=== PATIENT | female | born 1945 | race Caucasian/White ===

== ENCOUNTER 2020-01-02 13:29 | Outpatient (CLI) | payer MEDICARE, OTHER, SELFPAY ==
[2020-01-02 13:46] LABS: Basophils Absolute Auto 0.05 K/mm3 (0.00-0.10); Basophils Percent Auto 0.7 % (0.0-1.0); Eosinophils Absolute Auto 0.19 K/mm3 (0.02-0.50); Eosinophils Percent Auto 2.5 % (1.0-6.0); Hematocrit 31.6 % (35.0-42.0); Hemoglobin 10.1 g/dL (11.7-13.8); Immature Granulocyte Absolute 0.04 K/mm3 (0.00-0.00); Immature Granulocyte Percent A 0.5 % (0.0-0.0); Lymphocytes Absolute Auto 1.01 K/mm3 (1.10-4.50); Lymphocytes Percent Auto 13.5 % (18.0-42.0); Mean Corpuscular Hemoglobin 30.3 pg (27.0-31.0); Mean Corpuscular Volume 94.9 fL (78.0-102.0); Mean Platelet Volume 9.8 fl (9.2-11.8); Monocytes Absolute Auto 0.71 K/mm3 (0.10-0.90); Monocytes Percent Auto 9.5 % (2.0-11.0); Neutrophils Absolute Auto 5.5 K/mm3 (1.7-7.2); Neutrophils Percent Auto 73.3 % (50.0-70.0); Platelet Count Result 334 K/mm3 (150-420); Red Blood Count 3.33 M/mm3 (4.20-5.40); Red Cell Distribution Width 17.6 % (11.6-14.4); White Blood Count 7.5 K/mm3 (4.8-10.8)
[2020-01-02 14:30] LABS: Alanine Aminotransferase 30 U/L (14-59); Albumin Level 3.9 g/dL (3.4-5.0); Alkaline Phosphatase 122 U/L (46-116); Anion Gap 12.1 mmol/L (7-16); Aspartate Amino Transferase 28 U/L (15-37); Bilirubin,Total 0.9 mg/dL (0.00-1.00); Blood Urea Nitrogen 10 mg/dL (7-18); Calcium 8.3 mg/dL (8.5-10.1); Carbon Dioxide 28 mmol/L (21-32); Chloride 103 mmol/L (98-108); Estimated Glomerular Filt Rate > 60; Glucose 90 mg/dL (70-99); Osmolality Calculated 287 mOsm/kg (285-295); Potassium 4.1 mmol/L (3.5-5.1); Sodium 139 mmol/L (136-145); Thyroid Stimulating Hormone 1.38 uIU/mL (0.36-3.74); Total Protein 7.1 g/dL (6.4-8.2)
[2020-01-08 08:32] LABS: Vitamin D 1,25 (OH)2 Total 79 pg/mL (18-72); Vitamin D2 1,25 (OH)2 <8 pg/mL; Vitamin D3 1,25 (OH)2 79 pg/mL
== END 2020-01-02 13:30 | disposition home or self-care (01) ==
LOC: CHSLAB 13:36
PROVIDERS: PCP Family Medicine
DX: Z79.899 Other long term (current) drug therapy (principal); M81.0 Age-related osteoporosis without current pathological fracture
CPT/HCPCS: 36415; 80053; 82652; 84443; 85025

== ENCOUNTER 2020-10-27 07:55 | Outpatient (RCR) | payer MEDICARE, OTHER, SELFPAY | END 2021-01-25 23:59 | disposition home or self-care (01) | LOC: CHSAUDIO 07:55 | PROVIDERS: PCP Family Medicine; Visit Provider Family Medicine | DX: H91.90 Unspecified hearing loss, unspecified ear (principal) | CPT/HCPCS: 92557; 92567 ==

== ENCOUNTER 2020-12-08 10:02 | Outpatient (RCR) | payer MEDICARE, OTHER, SELFPAY | END 2021-03-08 23:59 | disposition home or self-care (01) | LOC: ANHAUDASC 10:02 | PROVIDERS: PCP Family Medicine; Visit Provider Family Medicine | DX: Z46.1 Encounter for fitting and adjustment of hearing aid (principal) | CPT/HCPCS: V5160; V5261 ==

== ENCOUNTER 2020-12-09 13:42 | Outpatient (NON) | payer MEDICARE, SELFPAY ==
[2020-12-09 14:08] LABS: Add Urine Microscopic? NO; Appearance Urine Clear (Clear); Bilirubin Urine Negative (Negative); Blood Urine Negative (Negative); Color Urine Yellow (Yellow); Glucose Urine UA Negative (Negative); Ketones Urine Negative (Negative); Leukocyte Esterase Ur Negative LEU/UL (Negative); Nitrate Urine Negative (Negative); Protein Urine Negative (Negative); Specific Grav Ur 1.015 (1.010-1.020); Urobilinogen Urine 0.2 mg/dL (0.2-1.0)
== END 2020-12-09 13:43 ==
LOC: CHSLAB 13:43
PROVIDERS: Visit Provider Family Medicine
DX: R30.0 Dysuria (principal)
CPT/HCPCS: 81003

== ENCOUNTER 2020-12-29 11:00 | Outpatient (RCR) | payer MEDICARE, OTHER, SELFPAY | END 2021-03-01 23:59 | disposition home or self-care (01) | LOC: CHSAUDIO 11:00 | PROVIDERS: PCP Family Medicine; Visit Provider Family Medicine | DX: Z53.8 Procedure and treatment not carried out for other reasons (principal) | CPT/HCPCS: 99199 ==

== ENCOUNTER 2021-01-06 10:31 | Outpatient (CLI) | payer MEDICARE, SELFPAY ==
[2021-01-06 10:49] LABS: Hematocrit 32.3 % (35.0-42.0); Hemoglobin 10.5 g/dL (11.7-13.8); Mean Corpuscular HGB Conc 32.5 g/dL (32.0-36.0); Mean Corpuscular Volume 89.2 fL (78.0-102.0); Mean Platelet Volume 9.7 fl (9.2-11.8); Platelet Count Result 331 K/mm3 (150-420); Red Blood Count 3.62 M/mm3 (4.20-5.40); Red Cell Distribution Width 17.7 % (11.6-14.4); White Blood Count 6.6 K/mm3 (4.8-10.8)
[2021-01-06 11:29] LABS: Alanine Aminotransferase 33 U/L (14-59); Albumin Level 4.1 g/dL (3.4-5.0); Alkaline Phosphatase 130 U/L (46-116); Anion Gap 5 mmol/L (8-16); Aspartate Amino Transferase 27 U/L (15-37); Blood Urea Nitrogen 10 mg/dL (7-18); Calcium 9.2 mg/dL (8.5-10.1); Carbon Dioxide 29 mmol/L (21-32); Chloride 96 mmol/L (98-108); Estimated Glomerular Filt Rate > 60; Glucose 92 mg/dL (70-99); Osmolality Calculated 269 mOsm/kg (285-295); Potassium 4.4 mmol/L (3.5-5.1); Sodium 130 mmol/L (136-145); Total Protein 7.3 g/dL (6.4-8.2)
[2021-01-11 14:30] LABS: Immature Reticulocyte Fraction 24.5 % (2.0-16.52); Reticulocyte Percent 4.79 % (0.50-1.50); Reticulocytes Absolute 0.18 M/mm3 (0.02-0.1)
[2021-01-11 14:40] LABS: Ferritin 22 ng/mL (8-252); Folic Acid 12.3 ng/mL (8.6->20); Iron 64 ug/dL (50-170); Percent Iron Saturation 17 % (12-57); Vitamin B12 275 pg/mL (193-986)
== END 2021-01-06 10:32 | disposition home or self-care (01) ==
PROVIDERS: PCP Family Medicine; Visit Provider Family Medicine
DX: K21.9 Gastro-esophageal reflux disease without esophagitis (principal); I10 Essential (primary) hypertension; Z79.899 Other long term (current) drug therapy; D64.9 Anemia, unspecified
CPT/HCPCS: 36415; 80053; 82607; 82728; 82746; 83540; 83550; 85027; 85046

== ENCOUNTER 2021-04-18 09:36 | Outpatient (CLI) | payer MEDICARE, OTHER, SELFPAY ==
--- NOTE | 2021-04-21 08:28 | WPDHOLTEREM ---
Holter/Event Monitor Holter/Event Monitor Date of procedure: 04/18/21 Procedure Type: 48 hour holter monitor Indications: Syncope Conclusion: 1. 48 hour holter monitor on 04/18/21. 2. Underlying rhythm is sinus rhythm. HR range 45-145 bpm; average HR 80 bpm. 3. There are 32 premature supraventricular complexes, 2 supraventricular couplets and 2 supraventricular triplets. No supraventricular tachycardia. 4. There are 285 premature ventricular complexes. No ventricular tachycardia. 5. No sinoatrial or atrioventricular blocks. There are intermittent pauses up to 2.0 seconds. 6. Patient reports symptoms of fluttering and feeling anxious which demonstrate sinus rhythm, HR range 57-106 bpm with one episodes of PAC's and 3 episodes with pauses of 1.8 -2.0 seconds.
== END 2021-04-18 09:37 | disposition home or self-care (01) ==
LOC: CHSLAB 09:40
PROVIDERS: PCP Family Medicine; Visit Provider Family Medicine
DX: R55 Syncope and collapse (principal)
CPT/HCPCS: 93225; 93226

== ENCOUNTER 2021-05-30 15:39 | Outpatient (CLI) | payer MEDICARE, OTHER, SELFPAY ==
--- NOTE | 2021-05-30 15:42 | ECG_ITS ---
Measurements Intervals [place] Rate: 69 P: 81 MD: 177 QRS: 71 QRSD: 91 T: 42 QT: 374 QTc: 403 Interpretive Statements SINUS RHYTHM WITH MARKED RHYTHM IRREGULARITY, POSSIBLE NON-CONDUCTED PAC, SA BLOCK, AV BLOCK, OR SINUS PAUSE ABNORMAL ECG Electronically Signed On 05-30-2021 17:03:15 CDT by Jace Gonzalez D.O.
== END 2021-05-30 15:40 | disposition home or self-care (01) ==
LOC: CHSCARD 15:41
PROVIDERS: PCP Family Medicine; Visit Provider Internal Medicine Cardiovascular Disease
DX: I49.1 Atrial premature depolarization (principal)
CPT/HCPCS: 93005

== ENCOUNTER 2022-01-04 14:51 | Outpatient (NON) | payer MEDICARE, OTHER, SELFPAY | END 2022-01-04 14:52 | disposition home or self-care (01) | LOC: CHSLAB 14:51 | PROVIDERS: Visit Provider Family Medicine | DX: R30.0 Dysuria (principal) | CPT/HCPCS: 87086 ==

== ENCOUNTER 2022-01-16 09:58 | Outpatient (CLI) | payer MEDICARE, SELFPAY ==
[2022-01-16 10:10] LABS: Hematocrit 31.5 % (35.0-42.0); Hemoglobin 10.2 g/dL (11.7-13.8); Mean Corpuscular HGB Conc 32.4 g/dL (32.0-36.0); Mean Corpuscular Hemoglobin 28.7 pg (27.0-31.0); Mean Corpuscular Volume 88.5 fL (78.0-102.0); Mean Platelet Volume 9.2 fl (9.2-11.8); Platelet Count Result 348 K/mm3 (150-420); Red Blood Count 3.56 M/mm3 (4.20-5.40); Red Cell Distribution Width 17.5 % (11.6-14.4); White Blood Count 7.8 K/mm3 (4.8-10.8)
[2022-01-16 10:52] LABS: Thyroid Stimulating Hormone Reflex 1.15 u/IU/mL (0.36-3.74)
== END 2022-01-16 09:59 | disposition home or self-care (01) ==
PROVIDERS: PCP Family Medicine; Visit Provider Family Medicine
DX: E11.9 Type 2 diabetes mellitus without complications (principal); I10 Essential (primary) hypertension
CPT/HCPCS: 36415; 84443; 85027

== ENCOUNTER 2022-03-27 10:41 | Outpatient (CLI) | payer MEDICARE, SELFPAY ==
[2022-03-27 10:59] LABS: Basophils Absolute Auto 0.04 K/mm3 (0.00-0.10); Basophils Percent Auto 0.6 % (0.0-1.0); Eosinophils Absolute Auto 0.13 K/mm3 (0.02-0.50); Hematocrit 31.3 % (35.0-42.0); Hemoglobin 9.8 g/dL (11.7-13.8); Immature Granulocyte Absolute 0.02 K/mm3 (0.00-0.00); Immature Granulocyte Percent A 0.3 % (0.0-0.0); Lymphocytes Absolute Auto 1.01 K/mm3 (1.10-4.50); Lymphocytes Percent Auto 15.3 % (18.0-42.0); Mean Corpuscular HGB Conc 31.3 g/dL (32.0-36.0); Mean Corpuscular Hemoglobin 26.7 pg (27.0-31.0); Mean Corpuscular Volume 85.3 fL (78.0-102.0); Mean Platelet Volume 9.8 fl (9.2-11.8); Monocytes Absolute Auto 0.62 K/mm3 (0.10-0.90); Monocytes Percent Auto 9.4 % (2.0-11.0); Neutrophils Absolute Auto 4.8 K/mm3 (1.7-7.2); Neutrophils Percent Auto 72.4 % (50.0-70.0); Platelet Count Result 312 K/mm3 (150-420); Red Blood Count 3.67 M/mm3 (4.20-5.40); Red Cell Distribution Width 20.7 % (11.6-14.4); White Blood Count 6.6 K/mm3 (4.8-10.8)
[2022-03-27 11:13] LABS: Alanine Aminotransferase 20 U/L (14-59); Albumin Level 3.7 g/dL (3.4-5.0); Alkaline Phosphatase 113 U/L (46-116); Anion Gap 5 mmol/L (8-16); Aspartate Amino Transferase 37 U/L (15-37); Bilirubin,Total 0.9 mg/dL (0.00-1.00); Blood Urea Nitrogen 9 mg/dL (7-18); Calcium 8.1 mg/dL (8.5-10.1); Carbon Dioxide 28 mmol/L (21-32); Chloride 97 mmol/L (98-108); Estimated Glomerular Filt Rate > 60; Glucose 88 mg/dL (70-99); Osmolality Calculated 267 mOsm/kg (285-295); Potassium 5.3 mmol/L (3.5-5.1); Sodium 130 mmol/L (136-145); Total Protein 7.3 g/dL (6.4-8.2)
== END 2022-03-27 10:42 | disposition home or self-care (01) ==
LOC: CHSLAB 10:46
PROVIDERS: PCP Family Medicine
DX: Z79.899 Other long term (current) drug therapy (principal)
CPT/HCPCS: 36415; 80053; 85025

== ENCOUNTER 2022-05-03 11:49 | Outpatient (CLI) | payer MEDICARE, OTHER, SELFPAY ==
[2022-05-03 12:10] LABS: Basophils Absolute Auto 0.05 K/mm3 (0.00-0.10); Basophils Percent Auto 0.8 % (0.0-1.0); Eosinophils Absolute Auto 0.18 K/mm3 (0.02-0.50); Hematocrit 29.7 % (35.0-42.0); Hemoglobin 9.6 g/dL (11.7-13.8); Immature Granulocyte Absolute 0.02 K/mm3 (0.00-0.00); Immature Granulocyte Percent A 0.3 % (0.0-0.0); Lymphocytes Absolute Auto 0.97 K/mm3 (1.10-4.50); Lymphocytes Percent Auto 16.2 % (18.0-42.0); Mean Corpuscular HGB Conc 32.3 g/dL (32.0-36.0); Mean Corpuscular Hemoglobin 28.4 pg (27.0-31.0); Mean Corpuscular Volume 87.9 fL (78.0-102.0); Mean Platelet Volume 10.1 fl (9.2-11.8); Monocytes Absolute Auto 0.58 K/mm3 (0.10-0.90); Monocytes Percent Auto 9.7 % (2.0-11.0); Neutrophils Absolute Auto 4.2 K/mm3 (1.7-7.2); Platelet Count Result 314 K/mm3 (150-420); Red Blood Count 3.38 M/mm3 (4.20-5.40); Red Cell Distribution Width 17.6 % (11.6-14.4)
--- NOTE | 2022-05-03 12:10 | ECG_ITS ---
Measurements Intervals [place] Rate: 57 P: 77 NC: 169 QRS: 67 QRSD: 97 T: 59 QT: 428 QTc: 420 Interpretive Statements SINUS BRADYCARDIA WITH FREQUENT SUPRAVENTRICULAR PREMATURE COMPLEXES POSSIBLE SINOATRIAL EXIT BLOCK ABNORMAL ECG COMPARED TO ECG 05/30/2021 15:48:22 HEART RATE HAS DECREASED Electronically Signed On 05-03-2022 15:08:23 CDT by Shaun Rose M.D.
[2022-05-03 12:43] LABS: Alanine Aminotransferase 27 U/L (14-59); Albumin Level 3.7 g/dL (3.4-5.0); Alkaline Phosphatase 107 U/L (46-116); Anion Gap 4 mmol/L (8-16); Aspartate Amino Transferase 22 U/L (15-37); Bilirubin,Total 0.6 mg/dL (0.00-1.00); Blood Urea Nitrogen 7 mg/dL (7-18); Calcium 8.3 mg/dL (8.5-10.1); Carbon Dioxide 30 mmol/L (21-32); Chloride 100 mmol/L (98-108); Estimated Glomerular Filt Rate > 60; Glucose 81 mg/dL (70-99); Osmolality Calculated 275 mOsm/kg (285-295); Potassium 4.4 mmol/L (3.5-5.1); Sodium 134 mmol/L (136-145); Total Protein 7.1 g/dL (6.4-8.2)
== END 2022-05-03 11:50 | disposition home or self-care (01) ==
LOC: CHSLAB 11:54
PROVIDERS: PCP Nurse Practitioner Family; Visit Provider Nurse Practitioner Family
DX: I49.3 Ventricular premature depolarization (principal); R42 Dizziness and giddiness; Z01.818 Encounter for other preprocedural examination; E83.42 Hypomagnesemia; F41.1 Generalized anxiety disorder
CPT/HCPCS: 36415; 80053; 83735; 84443; 85025; 93005

== ENCOUNTER 2022-05-03 16:55 | Emergency (ER) | payer MEDICARE, OTHER, SELFPAY ==
[2022-05-03] VITALS (20 sets, daily range): BP systolic 122–143; BP diastolic 69–83; PULSE 61–87; RESP 15–23; TEMP 36.6; O2SAT 90–93
--- NOTE | ~2022-05-03 | XR_ITS ---
XR chest 2V DATE: 05/03/2022 17:29 INDICATION: Abnormal EKG. History of hypertension. History of vertigo. TECHNIQUE: PA and lateral views COMPARISON: January 01, 2015 2 view chest FINDINGS: Normal heart size. Aortic arch and descending thoracic aortic calcification. No hilar or me diastinal enlargement. No pulmonary infiltrate or consolidation, pleural effusion or pulmonary vascul ar congestion or pneumothorax. Osteopenia. There is dextroscoliosis of the thoracic spine. IMPRESSION: No active cardiopulmonary disease Aortic atherosclerosis Osteopenia Reviewed, dictated and finalized at location A.
--- NOTE | ~2022-05-03 | CT_ITS ---
EXAMINATION: CT brain wo con DATE: 05/03/2022 18:57 INDICATION: dizziness . TECHNIQUE: Computed tomography (CT) of the head was performed without intravenous contrast. The mA wa s adjusted according to patient size. Iterative reconstruction technique was employed. The dose-lengt h product was 605.33 mGy-cm. COMPARISON: 06/18/2014 FINDINGS: No acute intracranial hemorrhage or extra-axial fluid collection. No hydrocephalus, mass, or herniation. No acute ischemic infarct. Unremarkable dural venous sinus attenuation. No acute osseous abnormality. The aerated spaces are clear. Mild atrophy. Old left basal ganglia lacunar infarct. Atherosclerotic intracranial calcifications. Bi lateral lens replacements. IMPRESSION: No acute intracranial process. Reviewed, dictated and finalized at location K.
--- NOTE | 2022-05-03 17:03 | ECG_ITS ---
Measurements Intervals [place] Rate: 79 P: 70 [place]: 156 QRS: 44 QRSD: 89 T: 7 QT: 354 QTc: 407 Interpretive Statements SINUS RHYTHM WITH SINUS ARRHYTHMIA WITHIN NORMAL LIMITS COMPARED TO ECG 05/03/2022 12:27:34 SINUS RHYTHM NOW PRESENT SINUS ARRHYTHMIA NOW PRESENT Electronically Signed On 05-05-2022 16:00:19 CDT by Cyrus Pérez M.D.
[2022-05-03 17:24] LABS: Basophils Absolute Auto 0.1 K/mm3 (0.0-0.1); Basophils Percent Auto 0.8 % (0.2-1.2); Eosinophils Absolute Auto 0.2 K/mm3 (0-0.3); Hematocrit 31.4 % (37.0-47.0); Immature Granulocyte Absolute 0.01 K/mm3 (0.00-0.031); Immature Granulocyte Percent A 0.2 % (0-0.5); Lymphocytes Absolute Auto 1.13 K/mm3 (0.9-3.2); Mean Corpuscular HGB Conc 31.8 g/dl (32-36); Mean Corpuscular Hemoglobin 28.2 pg (26-34); Mean Corpuscular Volume 88.7 fl (80-100); Mean Platelet Volume 9.9 fl (7.4-10.4); Monocytes Absolute Auto 0.7 K/mm3 (0.1-0.6); Monocytes Percent Auto 11.3 % (2.6-8.5); Neutrophils Absolute Auto 3.8 K/mm3 (1.3-6.7); Neutrophils Percent Auto 64.7 % (45.5-73.1); Platelet Count Result 302 k/mm3 (150-375); Red Blood Count 3.54 M/mm3 (4.2-5.4); Red Cell Distribution Width 17.6 % (11.5-14.5); White Blood Count 5.9 K/mm3 (4.5-10.0)
[2022-05-03 17:37] LABS: INR 1.2; Prothrombin Time 14.6 Seconds (11.1-14.7)
[2022-05-03 17:38] LABS: Partial Thromboplastin Time 32.5 SECONDS (22.3-36.8)
--- NOTE | 2022-05-03 17:41 | ED.GENADULT ---
HPI - General Adult General Chief complaint: Recheck/Abnormal Lab/Rx Stated complaint: sent by PCP for abnormal EKG - no complaints Time Seen by Provider: 05/03/22 17:19 Source: RN notes reviewed History of Present Illness HPI narrative: Patient presents emerged department from PCPs office for an abnormal EKG. Patient states she went to her PCP because she has been having intermittent episodes of feeling like she is going to pass out states the episodes last approximately 30 seconds and resolved but it been going on for the past 5 days she states she has several episodes a day she denies any vision changes denies any numbness or tingling in extremities, chest pain shortness of breath abdominal pain nausea vomiting or any other symptoms. She denies any previous cardiac history Related Data Home Medications Medication Instructions Recorded Confirmed aspirin 81 mg tablet,delayed 81 mg PO DAILY 11/06/19 05/03/22 release clobetasol 0.05 % topical cream 1 applic topical BID PRN 11/06/19 05/03/22 dapsone 100 mg tablet 100 mg PO DAILY 11/06/19 05/03/22 Allergies Allergy/AdvReac Type Severity Reaction Status Date / Time Sulfonamides Allergy Intermediate Unknown Uncoded 05/03/22 08:14 Review of Systems Review of Systems: Gen.: Denies fevers or chills Eyes: Denies eye pain or visual change ENT: Denies congestion Respiratory: Denies shortness of breath or cough CV: See HPI GI: Denies abdominal pain nausea, emesis or diarrhea Musculoskeletal: Denies back pain or muscle pain Neuro: Denies numbness, tingling, weakness or focal weakness Skin: Denies rash Except as documented, all other systems reviewed and negative [facility] Past Medical History Medical History Age related osteoporosis GERD (gastroesophageal reflux disease) Hypertension Sleep apnea, unspecified Tobacco dependence Social History Social History Smoking status: Never smoker Alcohol intake: never Substance use: never Substance use type: does not use Exam Narrative: APPEARANCE: No acute distress, nontoxic, resting in bed EYES: EOMI HEENT: Normocephalic, atraumatic, OMM RESPIRATORY: No respiratory distress Clear to auscultation bilaterally with no rhonchi wheezing or rales. CARDIOVASCULAR: Regular rate and rhythm without murmurs rubs or gallops. ABDOMINAL: Soft, nontender, nondistended, no rebound or guarding MUSCULOSKELETAl: Moves all extremities. No clubbing, cyanosis or edema. NEURO: Awake and alert. Following commands, speech normal, no focal deficits SKIN:: Warm, dry. No rashes lesions or abrasions PSYCHIATRIC: Normal affect/mood, Course Course Emergency Course: Reviewed patient's EKG from outpatient office. Patient with episodes of brief sinus pause reviewed all EKGs patient had an EKG back in 05/30/2021 showing a similar pause at that time she been evaluated by Dr. Mckinley and had a Holter monitor worn as well Patient remained stable in ED occasional pause noted patient remains asymptomatic in ED Discussed with Dr. Rose presentation and work-up for Dr. Gonzalez we discussed the EKG and he did review the patient's EKG himself discussed her previous visits with Dr. Gonzalez at this time feels patient may be discharged home with follow-up as an outpatient with Dr. Gonzalez Discussed with patient results of workup and diagnosis. Discussed need for follow-up with primary care, proper use of medication, and reasons to return to the emergency department. Patient understands and agrees to current treatment plan Vital Signs Vital signs: Vital Signs Temperature 97.8 F 05/03/22 16:59 Pulse Rate 87 05/03/22 16:59 Respiratory Rate 18 05/03/22 16:59 Blood Pressure 143/83 H 05/03/22 16:59 Pulse Oximetry 92 05/03/22 16:59 Oxygen Delivery Room Air 05/03/22 16:59 Temperature 97.8 F 05/03/22 16:59 Pulse Rate 84 05/03/22 19:33 Respi
[2022-05-03 17:48] LABS: Troponin I < 0.012 ng/mL (0.000-0.034)
--- NOTE | 2022-05-03 18:50 | PCDIET ---
called lab and talked to willow. added TSH at 18:51
[2022-05-03 20:28] LABS: Troponin I < 0.012 ng/mL (0.000-0.034)
[2022-05-03 20:34] LABS: Alanine Aminotransferase 22 U/L (6-35); Alkaline Phosphatase 97 U/L (38-126); Anion Gap 5 mmol/L (8-16); Aspartate Amino Transferase 34 U/L (14-36); Bilirubin,Total 0.9 mg/dL (0.2-1.3); Blood Urea Nitrogen 8 mg/dL (7-17); Calcium 8.3 mg/dL (8.4-10.2); Carbon Dioxide 27 mmol/L (22-30); Chloride 99 mmol/L (98-107); Estimated CRCL calculation 71 ml/min; Estimated Glomerular Filt Rate > 60; Glucose 90 mg/dL (65-110); Lipase 57 U/L (23-300); Magnesium 1.8 mg/dL (1.6-2.3); Potassium 3.9 mmol/L (3.4-5.0); Sodium 131 mmol/L (137-145)
[2022-05-03 21:01] LABS: Albumin Level 4.4 g/dL (3.5-5.1)
== END 2022-05-03 20:56 | disposition home or self-care (01) ==
PROVIDERS: Emergency Provider Emergency Medicine; PCP Nurse Practitioner Family
DX: R42 Dizziness and giddiness (principal); I49.3 Ventricular premature depolarization; I10 Essential (primary) hypertension; G47.30 Sleep apnea, unspecified; K21.9 Gastro-esophageal reflux disease without esophagitis; I70.0 Atherosclerosis of aorta; M81.0 Age-related osteoporosis without current pathological fracture; Z79.82 Long term (current) use of aspirin; M85.88 Other specified disorders of bone density and structure, other site
CPT/HCPCS: 36415; 70450; 71046; 80053; 83690; 83735; 84443; 84484; 85025; 85610; 85730; 93005; 99284

== ENCOUNTER 2023-01-23 13:17 | Outpatient (NON) | payer MEDICARE, OTHER, SELFPAY | END 2023-01-23 13:18 | disposition home or self-care (01) | LOC: CHSLAB 13:19 | PROVIDERS: Visit Provider Family Medicine | DX: N39.0 Urinary tract infection, site not specified (principal) | CPT/HCPCS: 87077; 87086; 87088 ==

== ENCOUNTER 2023-03-09 09:54 | Outpatient (CLI) | payer MEDICARE, SELFPAY ==
[2023-03-09 10:15] LABS: Basophils Absolute Auto 0.05 K/mm3 (0.00-0.10); Basophils Percent Auto 0.8 % (0.0-1.0); Eosinophils Absolute Auto 0.13 K/mm3 (0.02-0.50); Hemoglobin 9.4 g/dL (11.7-13.8); Immature Granulocyte Absolute 0.02 K/mm3 (0.00-0.00); Immature Granulocyte Percent A 0.3 % (0.0-0.0); Lymphocytes Absolute Auto 0.93 K/mm3 (1.10-4.50); Mean Corpuscular HGB Conc 31.3 g/dL (32.0-36.0); Mean Corpuscular Hemoglobin 25.3 pg (27.0-31.0); Mean Corpuscular Volume 80.6 fL (78.0-102.0); Mean Platelet Volume 9.3 fl (9.2-11.8); Monocytes Absolute Auto 0.71 K/mm3 (0.10-0.90); Monocytes Percent Auto 10.7 % (2.0-11.0); Neutrophils Absolute Auto 4.8 K/mm3 (1.7-7.2); Neutrophils Percent Auto 72.2 % (50.0-70.0); Platelet Count Result 361 K/mm3 (150-420); Red Blood Count 3.72 M/mm3 (4.20-5.40); Red Cell Distribution Width 19.7 % (11.6-14.4); White Blood Count 6.7 K/mm3 (4.8-10.8)
[2023-03-09 10:38] LABS: Alanine Aminotransferase 32 U/L (14-59); Albumin Level 3.8 g/dL (3.4-5.0); Alkaline Phosphatase 121 U/L (46-116); Anion Gap 5 mmol/L (8-16); Aspartate Amino Transferase 27 U/L (15-37); Bilirubin,Total 0.5 mg/dL (0.00-1.00); Blood Urea Nitrogen 7 mg/dL (7-18); Calcium 8.6 mg/dL (8.5-10.1); Carbon Dioxide 30 mmol/L (21-32); Chloride 97 mmol/L (98-108); Estimated Glomerular Filt Rate > 60; Glucose 95 mg/dL (70-99); Osmolality Calculated 272 mOsm/kg (285-295); Potassium 4.2 mmol/L (3.5-5.1); Sodium 132 mmol/L (136-145); Total Protein 7.1 g/dL (6.4-8.2)
== END 2023-03-09 09:55 | disposition home or self-care (01) ==
LOC: CHSLAB 09:58
PROVIDERS: PCP Family Medicine
DX: L13.0 Dermatitis herpetiformis (principal); Z79.899 Other long term (current) drug therapy
CPT/HCPCS: 36415; 80053; 85025

== ENCOUNTER 2023-08-10 10:12 | Outpatient (CLI) | payer MEDICARE, SELFPAY ==
[2023-08-10 10:27] LABS: Basophils Absolute Auto 0.07 K/mm3 (0.00-0.10); Basophils Percent Auto 1.2 % (0.0-1.0); Eosinophils Percent Auto 1.7 % (1.0-6.0); Hematocrit 27.5 % (35.0-42.0); Hemoglobin 8.5 g/dL (11.7-13.8); Immature Granulocyte Absolute 0.03 K/mm3 (0.00-0.00); Immature Granulocyte Percent A 0.5 % (0.0-0.0); Lymphocytes Absolute Auto 0.73 K/mm3 (1.10-4.50); Lymphocytes Percent Auto 12.1 % (18.0-42.0); Mean Corpuscular HGB Conc 30.9 g/dL (32.0-36.0); Mean Corpuscular Hemoglobin 22.8 pg (27.0-31.0); Mean Corpuscular Volume 73.7 fL (78.0-102.0); Mean Platelet Volume 9.4 fl (9.2-11.8); Monocytes Absolute Auto 0.79 K/mm3 (0.10-0.90); Monocytes Percent Auto 13.1 % (2.0-11.0); Neutrophils Absolute Auto 4.3 K/mm3 (1.7-7.2); Neutrophils Percent Auto 71.4 % (50.0-70.0); Nucleated Red Blood Cells Absolute Auto 0.04 K/mm3 (0.00-0.00); Nucleated Red Blood Cells Perc 0.7 % (0-0.0); Platelet Count Result 399 K/mm3 (150-420); Red Blood Count 3.73 M/mm3 (4.20-5.40)
[2023-08-10 11:02] LABS: Alanine Aminotransferase 31 U/L (14-59); Albumin Level 3.5 g/dL (3.4-5.0); Alkaline Phosphatase 160 U/L (46-116); Anion Gap 7 mmol/L (8-16); Aspartate Amino Transferase 33 U/L (15-37); Bilirubin,Total 0.6 mg/dL (0.00-1.00); Blood Urea Nitrogen 9 mg/dL (7-18); Calcium 8.8 mg/dL (8.5-10.1); Carbon Dioxide 28 mmol/L (21-32); Chloride 98 mmol/L (98-108); Estimated Glomerular Filt Rate > 60; Glucose 85 mg/dL (70-99); Osmolality Calculated 273 mOsm/kg (285-295); Potassium 4.7 mmol/L (3.5-5.1); Sodium 133 mmol/L (136-145); Total Protein 6.6 g/dL (6.4-8.2)
== END 2023-08-10 10:13 | disposition home or self-care (01) ==
LOC: CHSLAB 10:14
PROVIDERS: PCP Nurse Practitioner Family
DX: Z79.899 Other long term (current) drug therapy (principal)
CPT/HCPCS: 36415; 80053; 85025

== ENCOUNTER 2024-01-22 09:38 | Outpatient (CLI) | payer MEDICARE, SELFPAY ==
[2024-01-22 10:48] LABS: Basophils Absolute Auto 0.06 K/mm3 (0.00-0.10); Eosinophils Absolute Auto 0.11 K/mm3 (0.02-0.50); Eosinophils Percent Auto 1.9 % (1.0-6.0); Hematocrit 28.2 % (35.0-42.0); Hemoglobin 8.5 g/dL (11.7-13.8); Immature Granulocyte Absolute 0.02 K/mm3 (0.00-0.00); Immature Granulocyte Percent A 0.3 % (0.0-0.0); Lymphocytes Absolute Auto 0.85 K/mm3 (1.10-4.50); Lymphocytes Percent Auto 14.5 % (18.0-42.0); Mean Corpuscular HGB Conc 30.1 g/dL (32-36); Mean Corpuscular Volume 69.8 fL (78.0-102.0); Mean Platelet Volume 9.4 fl (9.2-11.8); Monocytes Absolute Auto 0.81 K/mm3 (0.10-0.90); Monocytes Percent Auto 13.8 % (2.0-11.0); Neutrophils Percent Auto 68.5 % (50.0-70.0); Platelet Count Result 392 K/mm3 (150-420); Red Blood Count 4.04 M/mm3 (4.20-5.40); Red Cell Distribution Width 22.1 % (11.6-14.4); White Blood Count 5.9 K/mm3 (4.8-10.8)
[2024-01-22 11:05] LABS: Alanine Aminotransferase 28 U/L (14-59); Albumin Level 3.8 g/dL (3.4-5.0); Alkaline Phosphatase 123 U/L (46-116); Anion Gap 8 mmol/L (8-16); Aspartate Amino Transferase 23 U/L (15-37); Bilirubin,Total 0.7 mg/dL (0.00-1.00); Blood Urea Nitrogen 11 mg/dL (7-18); Calcium 8.4 mg/dL (8.5-10.1); Carbon Dioxide 28 mmol/L (21-32); Chloride 98 mmol/L (98-108); Estimated Glomerular Filt Rate > 60; Glucose 86 mg/dL (70-99); Osmolality Calculated 276 mOsm/kg (285-295); Potassium 4.5 mmol/L (3.5-5.1); Sodium 134 mmol/L (136-145)
== END 2024-01-22 09:39 | disposition home or self-care (01) ==
LOC: CHSLAB 09:41
PROVIDERS: PCP Family Medicine
DX: Z79.899 Other long term (current) drug therapy (principal)
CPT/HCPCS: 36415; 80053; 85025

== ENCOUNTER 2024-03-20 09:02 | Outpatient (CLI) | payer MEDICARE, OTHER, SELFPAY ==
[2024-03-20 09:35] LABS: Immature Reticulocyte Fraction 29.8 % (2.0-16.52); Reticulocyte Hemoglobin Conten 24.5 pg (28.0-35.0); Reticulocyte Percent 2.99 % (0.50-1.50); Reticulocytes Absolute 0.12 M/mm3 (0.02-0.10)
[2024-03-20 10:51] LABS: Ferritin 12 ng/mL (8-252); Iron 28 ug/dL (50-170); Percent Iron Saturation 8 % (12-57)
== END 2024-03-20 09:03 | disposition home or self-care (01) ==
LOC: CHSLAB 09:07
PROVIDERS: PCP Family Medicine
DX: D64.9 Anemia, unspecified (principal)
CPT/HCPCS: 36415; 82728; 83540; 83550; 85046

== ENCOUNTER 2024-06-17 11:29 | Outpatient (CLI) | payer MEDICARE, SELFPAY ==
[2024-06-17 11:47] LABS: Basophils Absolute Auto 0.06 K/mm3 (0.00-0.10); Basophils Percent Auto 1.1 % (0.0-1.0); Eosinophils Absolute Auto 0.14 K/mm3 (0.02-0.50); Eosinophils Percent Auto 2.6 % (1.0-6.0); Hematocrit 29.1 % (35.0-42.0); Hemoglobin 9.4 g/dL (11.7-13.8); Immature Granulocyte Absolute 0.01 K/mm3 (0.00-0.00); Immature Granulocyte Percent A 0.2 % (0.0-0.0); Lymphocytes Percent Auto 16.8 % (18.0-42.0); Mean Corpuscular HGB Conc 32.3 g/dL (32-36); Mean Corpuscular Volume 71.1 fL (78.0-102.0); Mean Platelet Volume 8.8 fl (9.2-11.8); Monocytes Absolute Auto 0.71 K/mm3 (0.10-0.90); Monocytes Percent Auto 13.2 % (2.0-11.0); Neutrophils Absolute Auto 3.55 K/mm3 (1.70-7.20); Neutrophils Percent Auto 66.1 % (50.0-70.0); Platelet Count Result 337 K/mm3 (150-420); Red Blood Count 4.09 M/mm3 (4.20-5.40); Red Cell Distribution Width 21.3 % (11.6-14.4); White Blood Count 5.4 K/mm3 (4.8-10.8)
[2024-06-17 19:17] LABS: Ferritin 12 ng/mL (8-252); Iron 33 ug/dL (50-170); Percent Iron Saturation 9 % (12-57)
== END 2024-06-17 11:30 ==
LOC: CHSLAB 11:30
PROVIDERS: PCP Family Medicine; Visit Provider Family Medicine
DX: D50.9 Iron deficiency anemia, unspecified (principal)
CPT/HCPCS: 36415; 82728; 83540; 83550; 85025

== ENCOUNTER 2024-06-23 08:54 | Outpatient (CLI) | payer MEDICARE, OTHER, SELFPAY ==
[2024-06-23 09:05] VITALS: BP 117/68; PULSE 80; RESP 14; TEMP 36.6; O2SAT 95; BMI 19.6
[2024-06-23] MEDS: IRON SUCROSE COMPLEX 100 MG in SODIUM CHLORIDE 0.9% IV 100 ML IVPB (09:26)
[2024-06-23 10:50] VITALS: BP 118/67; PULSE 76; RESP 14; TEMP 36.6; O2SAT 97
--- NOTE | 2024-06-23 11:20 | PC.NURSE ---
1050 Patient here for #1 of 3 Venofer infusions. Education given. All concerns answered. Infusion administered. SEE MAR and patient care notes. Tolerated well.
== END 2024-06-23 08:55 | disposition home or self-care (01) ==
PROVIDERS: PCP Family Medicine; Visit Provider Family Medicine
DX: D50.9 Iron deficiency anemia, unspecified (principal)
CPT/HCPCS: 96365; J1756

== ENCOUNTER 2024-06-25 08:48 | Outpatient (CLI) | payer MEDICARE, OTHER, SELFPAY ==
[2024-06-25 09:10] VITALS: BP 123/80; PULSE 74; RESP 16; TEMP 36.6; O2SAT 94; BMI 43.1
--- NOTE | 2024-06-25 09:10 | PC.NURSE ---
Patient here for venofer infusion. Tolerated IV start well. Provided with drink and warm blanket per request. Waiting on Venofer to be ready. Call light provided, denies any further needs at this time.
[2024-06-25] MEDS: IRON SUCROSE COMPLEX 100 MG in SODIUM CHLORIDE 0.9% IV 100 ML IVPB (09:31)
--- NOTE | 2024-06-25 10:35 | PC.NURSE ---
Venofer infusion complete. Patient tolerated well. IV site discontinued. Dressing applied to site, patient tolerated well. Patient given information regarding Venofer. Denies any questions at this time. Patient left floor ambulatory accompanied by spouse.
== END 2024-06-25 09:35 | disposition home or self-care (01) ==
PROVIDERS: PCP Family Medicine; Visit Provider Family Medicine
DX: D50.9 Iron deficiency anemia, unspecified (principal)
CPT/HCPCS: 96365; J1756

== ENCOUNTER 2024-06-27 08:47 | Outpatient (CLI) | payer MEDICARE, OTHER, SELFPAY ==
[2024-06-27 08:54] VITALS: BMI 19.6
[2024-06-27] MEDS: IRON SUCROSE COMPLEX 100 MG in SODIUM CHLORIDE 0.9% IV 100 ML IVPB (09:15)
[2024-06-27 09:19] VITALS: BP 142/70; PULSE 72; RESP 16; TEMP 36.5; O2SAT 97
[2024-06-27 10:17] VITALS: BP 111/68; PULSE 72; RESP 14; TEMP 36.4; O2SAT 97
--- NOTE | 2024-06-27 10:18 | PC.NURSE ---
Patient here for #3 of 3 IV Venofer infusions. Education given. NO concerns voiced. Reports has done well with last two infusions. Infusion administered. SEE MAR /Patient care notes.
== END 2024-06-27 08:48 | disposition home or self-care (01) ==
PROVIDERS: PCP Family Medicine; Visit Provider Family Medicine
DX: D50.9 Iron deficiency anemia, unspecified (principal)
CPT/HCPCS: 96365; 96366; J1756

== ENCOUNTER 2024-07-16 09:34 | Outpatient (CLI) | payer MEDICARE, SELFPAY ==
[2024-07-16 09:44] LABS: Basophils Absolute Auto 0.04 K/mm3 (0.00-0.10); Basophils Percent Auto 0.6 % (0.0-1.0); Eosinophils Absolute Auto 0.11 K/mm3 (0.02-0.50); Eosinophils Percent Auto 1.7 % (1.0-6.0); Hematocrit 33.5 % (35.0-42.0); Hemoglobin 10.9 g/dL (11.7-13.8); Immature Granulocyte Absolute 0.02 K/mm3 (0.00-0.00); Immature Granulocyte Percent A 0.3 % (0.0-0.0); Lymphocytes Absolute Auto 0.82 K/mm3 (1.10-4.50); Lymphocytes Percent Auto 12.3 % (18.0-42.0); Mean Corpuscular HGB Conc 32.5 g/dL (32-36); Mean Corpuscular Hemoglobin 26.5 pg (27.0-31.0); Mean Corpuscular Volume 81.5 fL (78.0-102.0); Mean Platelet Volume 9.1 fl (9.2-11.8); Monocytes Absolute Auto 0.76 K/mm3 (0.10-0.90); Monocytes Percent Auto 11.4 % (2.0-11.0); Neutrophils Percent Auto 73.7 % (50.0-70.0); Platelet Count Result 321 K/mm3 (150-420); Red Blood Count 4.11 M/mm3 (4.20-5.40); White Blood Count 6.7 K/mm3 (4.8-10.8)
[2024-07-18 10:14] LABS: Iron 54 ug/dL (37-170)
[2024-07-18 10:23] LABS: Percent Iron Saturation 14 % (20-50)
== END 2024-07-16 09:35 | disposition home or self-care (01) ==
PROVIDERS: PCP Family Medicine; Visit Provider Family Medicine
DX: D50.9 Iron deficiency anemia, unspecified (principal); K21.9 Gastro-esophageal reflux disease without esophagitis
CPT/HCPCS: 36415; 82728; 83540; 83550; 85025

== ENCOUNTER 2025-04-01 09:14 | Outpatient (CLI) | payer MEDICARE, SELFPAY ==
[2025-04-01 09:27] LABS: Basophils Absolute Auto 0.05 K/mm3 (0.00-0.10); Basophils Percent Auto 0.8 % (0.0-1.0); Eosinophils Absolute Auto 0.14 K/mm3 (0.02-0.50); Eosinophils Percent Auto 2.1 % (1.0-6.0); Hematocrit 33.5 % (35.0-42.0); Hemoglobin 10.8 g/dL (11.7-13.8); Immature Granulocyte Absolute 0.03 K/mm3 (0.00-0.00); Immature Granulocyte Percent A 0.5 % (0.0-0.0); Lymphocytes Absolute Auto 0.82 K/mm3 (1.10-4.50); Lymphocytes Percent Auto 12.5 % (18.0-42.0); Mean Corpuscular HGB Conc 32.2 g/dL (32-36); Mean Corpuscular Hemoglobin 28.2 pg (27.0-31.0); Mean Corpuscular Volume 87.5 fL (78.0-102.0); Monocytes Absolute Auto 0.71 K/mm3 (0.10-0.90); Monocytes Percent Auto 10.8 % (2.0-11.0); Neutrophils Absolute Auto 4.83 K/mm3 (1.70-7.20); Neutrophils Percent Auto 73.3 % (50.0-70.0); Platelet Count Result 315 K/mm3 (150-420); Red Blood Count 3.83 M/mm3 (4.20-5.40); Red Cell Distribution Width 17.6 % (11.6-14.4); White Blood Count 6.6 K/mm3 (4.8-10.8)
[2025-04-01 09:51] LABS: Alanine Aminotransferase 17 U/L (6-35); Alkaline Phosphatase 101 U/L (38-126); Anion Gap 3 mmol/L (4-12); Aspartate Amino Transferase 27 U/L (14-36); Bilirubin,Total 0.8 mg/dL (0.2-1.3); Blood Urea Nitrogen 7 mg/dL (7-17); Calcium 8.5 mg/dL (8.4-10.2); Carbon Dioxide 28 mmol/L (22-30); Chloride 100 mmol/L (98-107); Cholesterol 150 mg/dL (0-200); Estimated Glomerular Filt Rate > 60; Glucose 97 mg/dL (65-110); HDL Direct 51 mg/dL; LDL Cholesterol Calculated 88 mg/dL (<130); Osmolality Calculated 270 mOsm/kg (285-295); Potassium 4.3 mmol/L (3.4-5.0); Sodium 131 mmol/L (137-145); Total Protein 6.7 g/dL (6.3-8.2); Triglycerides 53 mg/dL (<150)
--- OUTSIDE RECORDS SUMMARY | 2025-04-01 09:53 | XMS_ITS | Continuity of Care Document ---
Author Organization [facility] Address [address] [place] [address] Phone Care Team Providers Care Composite Science Teacher Name Role Phone Unavailable Unavailable Unavailable Advance Directives Directive Yes / No Effective Date File Name No Information Encounters Encounter Description Practice Location Reason(s) For Visit Diagnoses Date Provider Providers Copied on Encounter [facility] [place] [facility], [address] [facility] [address], [place], [place], [id number], tel:[phone] 01 MIL OSL Beka No Information Sep-0 6-200 5 No Information Family History Family Member Type Diagnosis Age At Onset No Information Payers Payer name Insurance type Covered constitution party ID Authoriza tion(s) No Information Social History Type Description Quantity Date Captured Comments Sex Female Smoking Status No Information Chief Complaint And Reason For Visit No Information Reason For Referral Reason For Referral No Information History Of Present Illness Encounter Date Complaint History Of Prese nt Illness No Information Functional Status Date Functional Assessmen t No Information Instructions Date Instruction Additional Infor mation No Information Assessments Type Assessment Date No Information Patient Care Teams Name Effective Dates (start - stop) Status Members No Information
== END 2025-04-01 09:15 | disposition home or self-care (01) ==
LOC: CHSLAB 09:16
PROVIDERS: PCP Nurse Practitioner Family; Visit Provider Family Medicine
DX: E03.9 Hypothyroidism, unspecified (principal); F41.1 Generalized anxiety disorder; D50.9 Iron deficiency anemia, unspecified; E53.8 Deficiency of other specified B group vitamins
CPT/HCPCS: 36415; 80053; 80061; 82607; 82728; 82746; 84443; 85025

== ENCOUNTER 2025-04-09 13:57 | Outpatient (CLI) | payer MEDICARE, SELFPAY ==
[2025-04-09 14:01] LABS: Occult Blood Negative (Negative)
--- OUTSIDE RECORDS SUMMARY | 2025-04-09 14:03 | XMS_ITS | Continuity of Care Document ---
Author Organization [facility] Address [address] [place] [address] Phone Care Team Providers Care Manager Dental Name Role Phone Unavailable Unavailable Unavailable Advance Directives Directive Yes / No Effective Date File Name No Information Encounters Encounter Description Practice Location Reason(s) For Visit Diagnoses Date Provider Providers Copied on Encounter [facility] [place] [facility], [address] [facility] [address], [place], [place], [id number], tel:[phone] 01 MIL OSL Beka No Information Sep-0 6-200 5 No Information Family History Family Member Type Diagnosis Age At Onset No Information Payers Payer name Insurance type Covered green party ID Authoriza tion(s) No Information Social [...]
== END 2025-04-09 13:58 | disposition home or self-care (01) ==
PROVIDERS: PCP Family Medicine; Visit Provider Family Medicine
DX: D50.9 Iron deficiency anemia, unspecified (principal)
CPT/HCPCS: 82272

== ENCOUNTER 2025-04-13 08:49 | Outpatient (CLI) | payer MEDICARE, OTHER, SELFPAY ==
[2025-04-13 09:00] VITALS: BP 134/72; PULSE 80; RESP 14; TEMP 36.6; O2SAT 95; BMI 20.8
--- OUTSIDE RECORDS SUMMARY | 2025-04-13 09:05 | XMS_ITS | Continuity of Care Document ---
Author Organization [facility] Address [address] [place] [address] Phone Care Team Providers Care Purification Director Name Role Phone Unavailable Unavailable Unavailable Advance Directives Directive Yes / No Effective Date File Name No Information Encounters Encounter Description Practice Location Reason(s) For Visit Diagnoses Date Provider Providers Copied on Encounter [facility] [place] [facility], [address] [facility] [address], [place], [place], [id number], tel:[phone] 01 MIL OSL Beka No Information Sep-0 6-200 5 No Information Family History Family Member Type Diagnosis Age At Onset No Information Payers Payer name Insurance type Covered democrat ID Authoriza tion(s) No Information Social History [...]
[2025-04-13] MEDS: IRON SUCROSE COMPLEX 100 MG in SODIUM CHLORIDE 0.9% IV 100 ML 200 MG IVPB (09:25)
[2025-04-13 10:02] VITALS: BP 126/73; PULSE 78; RESP 14; O2SAT 96
--- NOTE | 2025-04-13 10:03 | PC.NURSE ---
Patient here for #1 of 10 IV Venofer infusion. Education given. No concerns voiced. Reports had this is the past and no problems. Infusion administered. SEE MAR/patient care notes. Tolerated well.
== END 2025-04-13 08:50 | disposition home or self-care (01) ==
PROVIDERS: PCP Family Medicine; Visit Provider Family Medicine
DX: D50.9 Iron deficiency anemia, unspecified (principal)
CPT/HCPCS: 96365; J1756

== ENCOUNTER 2025-04-15 09:48 | Outpatient (CLI) | payer MEDICARE, OTHER, SELFPAY ==
[2025-04-15 10:02] VITALS: BP 129/71; PULSE 72; RESP 14; TEMP 36.6; O2SAT 93; BMI 19.6
--- OUTSIDE RECORDS SUMMARY | 2025-04-15 10:02 | XMS_ITS | Continuity of Care Document ---
Author Organization [facility] Address [address] [place] [address] Phone Care Team Providers Care Liquor Grinder Mill Operator Name Role Phone Unavailable Unavailable Unavailable Advance Directives Directive Yes / No Effective Date File Name No Information Encounters Encounter Description Practice Location Reason(s) For Visit Diagnoses Date Provider Providers Copied on Encounter [facility] [place] [facility], [address] [facility] [address], [place], [place], [id number], tel:[phone] 01 MIL OSL Beka No Information Sep-0 [...]
[2025-04-15] MEDS: IRON SUCROSE COMPLEX 100 MG in SODIUM CHLORIDE 0.9% IV 100 ML 200 MG IVPB (10:30)
[2025-04-15 11:05] VITALS: BP 118/67; PULSE 69; RESP 14; TEMP 36.4; O2SAT 97
--- NOTE | 2025-04-15 11:06 | PC.NURSE ---
Patient tolerated Venofer infusion well. SEE MAR/patient care notes
== END 2025-04-15 09:49 | disposition home or self-care (01) ==
PROVIDERS: PCP Family Medicine; Visit Provider Family Medicine
DX: D50.9 Iron deficiency anemia, unspecified (principal)
CPT/HCPCS: 96365; J1756

== ENCOUNTER 2025-04-17 10:17 | Outpatient (CLI) | payer MEDICARE, OTHER, SELFPAY ==
--- OUTSIDE RECORDS SUMMARY | 2025-04-17 10:22 | XMS_ITS | Continuity of Care Document ---
Author Organization [facility] Address [address] [place] [address] Phone Care Team Providers Care Enamel Cracker Name Role Phone Unavailable Unavailable Unavailable Advance Directives Directive Yes / No Effective Date File Name No Information Encounters Encounter Description Practice Location Reason(s) For Visit Diagnoses Date Provider Providers Copied on Encounter [facility] [place] [facility], [address] [facility] [address], [place], [place], [id number], tel:[phone] 01 MIL OSL Beka No Information Sep-0 [...]
[2025-04-17] MEDS: IRON SUCROSE COMPLEX 100 MG in SODIUM CHLORIDE 0.9% IV 100 ML 200 MG IVPB (10:30)
[2025-04-17 10:32] VITALS: BP 125/69; PULSE 72; RESP 16; TEMP 36.6; O2SAT 96; BMI 19.6
--- NOTE | 2025-04-17 11:26 | PC.NURSE ---
Patient tolerated #3 of 10 Venofer infusion well. SEE MAR/patient care notes.
[2025-04-17 11:27] VITALS: BP 124/67; PULSE 68; RESP 14
== END 2025-04-17 10:18 | disposition home or self-care (01) ==
PROVIDERS: PCP Family Medicine; Visit Provider Family Medicine
DX: D50.9 Iron deficiency anemia, unspecified (principal)
CPT/HCPCS: 96365; J1756

== ENCOUNTER 2025-04-20 09:48 | Outpatient (CLI) | payer MEDICARE, OTHER, SELFPAY ==
[2025-04-20 10:03] VITALS: BP 140/72; PULSE 78; RESP 14; TEMP 36.6; O2SAT 96; BMI 19.6
[2025-04-20] MEDS: IRON SUCROSE COMPLEX 100 MG in SODIUM CHLORIDE 0.9% IV 95 ML 200 MG IVPB (10:10)
--- OUTSIDE RECORDS SUMMARY | 2025-04-20 10:46 | XMS_ITS | Continuity of Care Document ---
Author Organization [facility] Address [address] [place] [address] Phone Care Team Providers Care Assistant Designer Name Role Phone Unavailable Unavailable Unavailable Advance Directives Directive Yes / No Effective Date File Name No Information Encounters Encounter Description Practice Location Reason(s) For Visit Diagnoses Date Provider Providers Copied on Encounter [facility] [place] [facility], [address] [facility] [address], [place], [place], [id number], tel:[phone] 01 MIL OSL Beka No Information Sep-0 [...]
--- NOTE | 2025-04-20 10:56 | PC.NURSE ---
Tolerated Xolair injection well. SEE MAR/Patient care notes.
[2025-04-20 10:58] VITALS: BP 129/77; PULSE 68; RESP 14
== END 2025-04-20 09:49 | disposition home or self-care (01) ==
PROVIDERS: PCP Family Medicine; Visit Provider Family Medicine
DX: D50.9 Iron deficiency anemia, unspecified (principal)
CPT/HCPCS: 96365; J1756

== ENCOUNTER 2025-04-22 09:45 | Outpatient (CLI) | payer MEDICARE, OTHER, SELFPAY ==
[2025-04-22 10:00] VITALS: BP 116/70; PULSE 64; RESP 14; TEMP 36.6; O2SAT 95; BMI 19.6
[2025-04-22] MEDS: IRON SUCROSE COMPLEX 100 MG in SODIUM CHLORIDE 0.9% IV 100 ML 200 MG IVPB (10:00)
--- NOTE | 2025-04-22 10:52 | PC.NURSE ---
Patient tolerated today's Venofer infusion well. SEE MAR/patient care notes
[2025-04-22 10:54] VITALS: BP 120/73; PULSE 62; RESP 14
--- OUTSIDE RECORDS SUMMARY | 2025-04-22 10:54 | XMS_ITS | Continuity of Care Document ---
Author Organization [facility] Address [address] [place] [address] Phone Care Team Providers Care Field Crop Farmworker Name Role Phone Unavailable Unavailable Unavailable Advance Directives Directive Yes / No Effective Date File Name No Information Encounters Encounter Description Practice Location Reason(s) For Visit Diagnoses Date Provider Providers Copied on Encounter [facility] [place] [facility], [address] [facility] [address], [place], [place], [id number], tel:[phone] 01 MIL OSL Beka No Information Sep-0 [...]
== END 2025-04-22 09:46 | disposition home or self-care (01) ==
PROVIDERS: PCP Family Medicine; Visit Provider Family Medicine
DX: D50.9 Iron deficiency anemia, unspecified (principal)
CPT/HCPCS: 96365; J1756

== ENCOUNTER 2025-04-24 09:47 | Outpatient (CLI) | payer MEDICARE, OTHER, SELFPAY ==
[2025-04-24 10:06] VITALS: BP 129/63; PULSE 78; RESP 14; TEMP 36.5; O2SAT 97; BMI 19.6
[2025-04-24] MEDS: IRON SUCROSE COMPLEX 100 MG in SODIUM CHLORIDE 0.9% IV 95 ML 200 MG IVPB (10:15)
[2025-04-24 11:00] VITALS: BP 124/66; PULSE 68; RESP 14
--- NOTE | 2025-04-24 11:01 | PC.NURSE ---
Tolerated #6 of 10 Venofer infusion well. SEE MAR/patient care notes.
== END 2025-04-24 09:48 | disposition home or self-care (01) ==
PROVIDERS: PCP Family Medicine; Visit Provider Family Medicine
DX: D50.9 Iron deficiency anemia, unspecified (principal)
CPT/HCPCS: 96365; J1756

== ENCOUNTER 2025-04-27 09:45 | Outpatient (CLI) | payer MEDICARE, OTHER, SELFPAY ==
[2025-04-27 10:10] VITALS: BP 123/74; PULSE 64; RESP 14; TEMP 36.5; O2SAT 96; BMI 19.6
[2025-04-27] MEDS: IRON SUCROSE COMPLEX 100 MG in SODIUM CHLORIDE 0.9% IV 95 ML 200 MG IVPB (10:15)
--- OUTSIDE RECORDS SUMMARY | 2025-04-27 10:27 | XMS_ITS | Continuity of Care Document ---
Author Organization [facility] Address [address] [place] [address] Phone Care Team Providers Care Blast Furnace Keeper Name Role Phone Unavailable Unavailable Unavailable Advance Directives Directive Yes / No Effective Date File Name No Information Encounters Encounter Description Practice Location Reason(s) For Visit Diagnoses Date Provider Providers Copied on Encounter [facility] [place] [facility], [address] [facility] [address], [place], [place], [id number], tel:[phone] 01 MIL OSL Beka No Information Sep-0 6-200 5 No Information Family History Family Member Type Diagnosis Age At Onset No Information Payers Payer name Insurance type Covered alliance party ID Authoriza tion(s) No Information Social [...]
[2025-04-27 10:46] VITALS: BP 125/69; PULSE 68; RESP 14; TEMP 36.6
--- NOTE | 2025-04-27 10:46 | PC.NURSE ---
Patient tolerated #7 Venofer infusion well. SEE MAR/patient care noted
== END 2025-04-27 09:46 | disposition home or self-care (01) ==
PROVIDERS: PCP Family Medicine; Visit Provider Family Medicine
DX: D50.9 Iron deficiency anemia, unspecified (principal)
CPT/HCPCS: 96365; J1756

== ENCOUNTER 2025-05-01 09:43 | Outpatient (CLI) | payer MEDICARE, OTHER, SELFPAY ==
[2025-05-01 10:04] VITALS: BP 132/70; PULSE 68; RESP 14; TEMP 36.6; O2SAT 95; BMI 19.6
[2025-05-01] MEDS: IRON SUCROSE COMPLEX 100 MG in SODIUM CHLORIDE 0.9% IV 95 ML 200 MG IVPB (10:15)
== END 2025-05-01 09:44 | disposition home or self-care (01) ==
PROVIDERS: PCP Family Medicine; Visit Provider Family Medicine
DX: D50.9 Iron deficiency anemia, unspecified (principal)
CPT/HCPCS: 96374; J1756

== ENCOUNTER 2025-05-06 09:36 | Outpatient (CLI) | payer MEDICARE, OTHER, SELFPAY ==
[2025-05-06] MEDS: IRON SUCROSE COMPLEX 100 MG in SODIUM CHLORIDE 0.9% IV 95 ML 200 MG IVPB (09:45)
[2025-05-06 10:02] VITALS: BP 125/76; PULSE 76; RESP 14; TEMP 36.6; O2SAT 96; BMI 19.6
[2025-05-06 10:30] VITALS: BP 126/70; PULSE 72
== END 2025-05-06 09:37 | disposition home or self-care (01) ==
PROVIDERS: PCP Family Medicine; Visit Provider Family Medicine
DX: D50.9 Iron deficiency anemia, unspecified (principal)
CPT/HCPCS: 96365; J1756

== ENCOUNTER 2025-05-08 09:39 | Outpatient (CLI) | payer MEDICARE, OTHER, SELFPAY ==
[2025-05-08] MEDS: IRON SUCROSE COMPLEX 100 MG in SODIUM CHLORIDE 0.9% IV 100 ML 200 MG IVPB (09:50)
[2025-05-08 10:04] VITALS: BP 127/74; PULSE 68; RESP 14; TEMP 36.6; O2SAT 96; BMI 27.8
--- NOTE | 2025-05-08 10:40 | PC.NURSE ---
Patient tolerated #10 of 10 Venofer infusion.
== END 2025-05-08 09:40 | disposition home or self-care (01) ==
PROVIDERS: PCP Family Medicine; Visit Provider Family Medicine
DX: D50.9 Iron deficiency anemia, unspecified (principal)
CPT/HCPCS: 96365; J1756

== ENCOUNTER 2025-07-16 10:25 | Outpatient (CLI) | payer MEDICARE, OTHER, SELFPAY ==
[2025-07-16 10:45] LABS: Hematocrit 37.7 % (35.0-42.0); Hemoglobin 12.2 g/dL (11.7-13.8); Immature Granulocyte Percent A 0.3 % (0.0-0.0); Lymphocytes Absolute Auto 0.99 K/mm3 (1.10-4.50); Mean Corpuscular HGB Conc 32.4 g/dL (32-36); Mean Corpuscular Hemoglobin 31.7 pg (27.0-31.0); Mean Corpuscular Volume 97.9 fL (78.0-102.0); Nucleated Red Blood Cells Absolute Auto 0.00 K/mm3 (0.00-0.00); Nucleated Red Blood Cells Perc 0.0 % (0-0.0); Platelet Count Result 316 K/mm3 (150-420); Red Blood Count 3.85 M/mm3 (4.20-5.40); White Blood Count 6.9 K/mm3 (4.8-10.8)
[2025-07-16 11:21] LABS: Iron 105 ug/dL (37-170)
[2025-07-16 11:22] LABS: Alanine Aminotransferase 20 U/L (6-35); Albumin Level 4.2 g/dL (3.5-5.1); Alkaline Phosphatase 94 U/L (38-126); Anion Gap 7 mmol/L (4-12); Aspartate Amino Transferase 32 U/L (14-36); Bilirubin,Total 1.2 mg/dL (0.2-1.3); Blood Urea Nitrogen 10 mg/dL (7-17); Calcium 9.6 mg/dL (8.4-10.2); Carbon Dioxide 28 mmol/L (22-30); Chloride 99 mmol/L (98-107); Estimated Glomerular Filt Rate > 60; Glucose 89 mg/dL (65-110); Osmolality Calculated 276 mOsm/kg (285-295); Potassium 5.5 mmol/L (3.4-5.0); Sodium 134 mmol/L (137-145); Total Protein 6.8 g/dL (6.3-8.2)
[2025-07-16 11:30] LABS: Percent Iron Saturation 36 % (20-50)
[2025-07-16 11:56] LABS: Ferritin 86.20 ng/mL (11.1-264)
== END 2025-07-16 10:26 | disposition home or self-care (01) ==
LOC: CHSLAB 10:28
PROVIDERS: PCP Family Medicine; Visit Provider Family Medicine
DX: D50.9 Iron deficiency anemia, unspecified (principal)
CPT/HCPCS: 36415; 80053; 82728; 83540; 83550; 85025